=== PATIENT | female | born 1985 | race Caucasian/White ===

== ENCOUNTER 2019-08-21 12:07 | Emergency (ER) | payer OTHER, SELFPAY ==
[2019-08-21 12:14] VITALS: BP 115/68; PULSE 91; RESP 18; TEMP 36.7; O2SAT 100
--- NOTE | 2019-08-21 12:21 | ED.FEMALEGU ---
HPI - Female Genitourinary General Chief complaint: Urogenital-Female Stated complaint: buring/frequent urination Time Seen by Provider: 08/21/19 12:21 Source: patient and RN notes reviewed History of Present Illness HPI Narrative: Patient is a 34-year-old female who presents the urgent care with complaints of possible UTI. Patient states that her symptoms started 3 days ago with urgency, frequency, burning and suprapubic pressure. Patient denies any blood in the urine, fever, nausea, vomiting, abdominal pain. Patient states she used to have frequent urinary tract infections but it is been a few years since her last infection. Patient denies any use of [id number] medication for symptom relief. No other acute complaints. No acute distress noted. Patient read the plan of care. Related Data Home Medications Medication Instructions Recorded Confirmed albuterol sulfate 2 puff INHALATION QID PRN 08/21/19 08/21/19 ertugliflozin [Steglatro] 5 mg PO BID 08/21/19 08/21/19 gabapentin 300 mg PO BID 08/21/19 08/21/19 glimepiride 4 mg PO BID 08/21/19 08/21/19 lisinopril 10 mg PO DAILY 08/21/19 08/21/19 trazodone 100 mg PO HS 08/21/19 08/21/19 Allergies Allergy/AdvReac Type Severity Reaction Status Date / Time No Known Allergies Allergy Verified 08/21/19 12:29 Review of Systems Review of Systems: Narrative: CONSTITUTIONAL: Denies fever, chills, or sweats. EYES: Denies visual changes, redness, or discharge. ENT: Denies rhinorrhea, congestion, sore throat, or otalgia. CARDIOVASCULAR: Denies chest pain, palpitations, or edema. RESPIRATORY: Denies cough or dyspnea. GASTROINTESTINAL: Denies abdominal pain, nausea, vomiting, or diarrhea. GENITOURINARY: Reports of dysuria, urgency, frequency SKIN: Denies rash or itching. MUSCULOSKELETAL: Denies back pain, joint pain, or myalgia. NEUROLOGIC: Denies headache, numbness, or weakness. All other systems reviewed are negative, except as documented in HPI. PMFSH Comments At the time of my signature, I reviewed and agree with the nursing past medical, surgical, social, and family history. There is no relevant family history pertinent to the patient complaint. Exam Narrative: Exam Narrative: GENERAL: This is a well-nourished, well-developed patient, in no apparent distress. HEAD: normocephalic, atraumatic. EYES: PERRL. Sclera clear/white. Vision is grossly intact. EARS: External ears normal NOSE: External nose normal with no obvious nasal discharge, nares without redness, no rhinorrhea. THROAT: Mucous membranes moist NECK: Neck supple GASTROINTESTINAL: Abdomen soft, mild suprapubic tenderness, nondistended. SKIN: warm, intact with no suspicious lesions or rash, good texture and turgor. NEURO: awake, alert, and oriented to person, place and time. There were no obvious focal neurologic abnormalities. EXTREMITIES: No clubbing, cyanosis, or edema. BACK: Negative bilateral CVA tenderness Course Vital Signs Vital signs: Vital Signs Temperature 98.1 F 08/21/19 12:14 Pulse Rate 91 08/21/19 12:14 Respiratory Rate 18 08/21/19 12:14 Blood Pressure 115/68 08/21/19 12:14 Pulse Oximetry 100 08/21/19 12:14 Temperature 98.1 F 08/21/19 12:14 Pulse Rate 91 08/21/19 12:14 Respiratory Rate 18 08/21/19 12:14 Blood Pressure 115/68 08/21/19 12:14 Pulse Oximetry 100 08/21/19 12:14 Reviewed MDM - Female Genitourinary MDM Narrative Medical decision making narrative: Reviewed lab results with the patient. She is aware that urine analysis is indicative of a urinary tract infection. Advised the patient to complete oral antibiotic regimen as prescribed. We will culture the urine and call if medication needs to be changed or stopped, based on culture results. You may call the facility in regards to your culture, after 72 hours. Make sure to eat and drink with medication. Increase water intake and avoid sugary and caffeinated drinks. Use Pyridium as needed for bladder
== END 2019-08-21 12:40 | disposition home or self-care (01) ==
PROVIDERS: Emergency Provider Nurse Practitioner Family; PCP Internal Medicine
DX: N39.0 Urinary tract infection, site not specified (principal); E78.00 Pure hypercholesterolemia, unspecified; I10 Essential (primary) hypertension; E11.9 Type 2 diabetes mellitus without complications
CPT/HCPCS: 81003; 87077; 87086; 87088; 87186; 99213; G0463

== ENCOUNTER 2021-01-03 17:13 | Emergency (ER) | payer OTHER, SELFPAY ==
[2021-01-03 17:19] VITALS: BP 134/80; PULSE 87; RESP 14; TEMP 36.6; O2SAT 99
--- NOTE | 2021-01-03 17:32 | ED.FEMALEGU ---
HPI - Female Genitourinary General Chief complaint: Urogenital-Female Stated complaint: UTI Time Seen by Provider: 01/03/21 17:34 Source: patient and RN notes reviewed Mode of arrival: ambulatory Limitations: no limitations History of Present Illness HPI Narrative: 35 female presents concern for urine frequency, dysuria, low back pain for 2 days. Reports history of urinary tract infection. She denies fever, body aches, chills, sweats, nausea. Denies intervention. MD elicited complaint: UTI Related Data Home Medications Medication Instructions Recorded Confirmed albuterol sulfate 2 puff INHALATION QID PRN 08/21/19 08/21/19 ertugliflozin [Steglatro] 5 mg PO BID 08/21/19 01/03/21 gabapentin 300 mg PO BID 08/21/19 01/03/21 glimepiride 4 mg PO BID 08/21/19 01/03/21 lisinopril 10 mg PO DAILY 08/21/19 01/03/21 metformin 1,000 mg PO BID 08/21/19 01/03/21 trazodone 100 mg PO HS 08/21/19 01/03/21 Allergies Allergy/AdvReac Type Severity Reaction Status Date / Time No Known Allergies Allergy Verified 08/21/19 12:29 Review of Systems Review of Systems: CONSTITUTIONAL: Denies malaise, chills, sweats, or fever. GASTROINTESTINAL: Reports chronic abdominal pain. Denies nausea, vomiting, diarrhea, bloody, or mucous stools. GENITOURINARY: Reports dysuria, frequency. Denies urgency or hematuria. SKIN: Denies rash or itching. MUSCULOSKELETAL: Reports low back pain. Denies joint pain, or myalgia. All systems reviewed & are unremarkable except as noted in HPI and below PMFSH Comments At time of signature, agree with nursing past medical, surgical, social and family history. There is no relevant family history pertinent to the presenting complaint Exam Narrative: GENERAL: Well-appearing, well-nourished, and in no acute distress. HEAD: Normocephalic. EYES: PERRLA, conjunctivae clear. NECK: Supple. No lymphadenopathy CHEST: Clear to auscultation. No respiratory distress. HEART: Regular rate and rhythm. ABDOMEN: Soft, obese, no palpable or pulsatile masses, no guarding. No CVA tenderness SKIN: Warm, dry, no rash. NEURO: Alert and oriented x3. PSYCH: Normal mood and affect Course Course Emergency Course: Patient is aware of diagnosis, understands and agrees to treatment plan. Anticipatory guidance given. Patient agrees to follow-up as directed and is aware of reasons to seek care at the emergency department. Portions of this record may have been created with voice recognition software Vital Signs Vital signs: Vital Signs Temperature 98 F 01/03/21 17:19 Pulse Rate 87 01/03/21 17:19 Respiratory Rate 14 01/03/21 17:19 Blood Pressure 134/80 01/03/21 17:19 Pulse Oximetry 99 01/03/21 17:19 Temperature 98 F 01/03/21 17:19 Pulse Rate 87 01/03/21 17:19 Respiratory Rate 14 01/03/21 17:19 Blood Pressure 134/80 01/03/21 17:19 Pulse Oximetry 99 01/03/21 17:19 Reviewed. MDM - Female Genitourinary MDM Narrative Medical decision making narrative: Exam findings and UA show no acute concerns or changes; patient is non-toxic appearing and is in no distress. Patient is appropriate for outpatient treatment and follow-up. Differential Diagnosis Differential diagnosis: Likely urinary tract infection, vaginitis and cystitis Lab Data Labs: Urine Glucose 2+ Reference Range: Negative Urine Bilirubin Negative Reference Range: Negative Urine Ketone Negative Reference Range: Negative Urine Specific [place] 1.025 Reference Range:1.001-1.035 Urine Blood Negative Reference Range: Negative * * Urine pH 7.0
== END 2021-01-03 17:44 | disposition home or self-care (01) ==
PROVIDERS: Emergency Provider Nurse Practitioner
DX: R35.0 Frequency of micturition (principal); R30.0 Dysuria; M54.50 Low back pain, unspecified; E78.00 Pure hypercholesterolemia, unspecified; I10 Essential (primary) hypertension; E11.9 Type 2 diabetes mellitus without complications
CPT/HCPCS: 81003; 87086; 87088; 99213; G0463

== ENCOUNTER 2022-04-01 18:18 | Emergency (ER) | payer OTHER, SELFPAY ==
--- NOTE | ~2022-04-01 | XR_ITS ---
EXAM: XR foot RT min 3V DATE: 04/01/2022 18:43 HISTORY: DROPPED OBJECT ON DISTAL 5TH METATARSAL, PAIN . COMPARISON: None available. FINDINGS: Normal mineralization. No fracture or dislocation. No lytic or blastic lesion. Scattered m ild degenerative change. Achilles and plantar enthesopathy. No erosion or periosteal change. Forefoot soft tissue swelling. IMPRESSION: No acute osseous finding in the right foot. Reviewed, dictated and finalized at location K. O HOST
[2022-04-01 18:34] VITALS: BP 106/57; PULSE 113; RESP 16; TEMP 36.9; O2SAT 99
--- NOTE | 2022-04-01 18:45 | ED.LOWEXIN ---
HPI - Extremity Injury (Lower) General Chief Complaint: Extremity Injury, Lower Stated Complaint: Right Foot Injury Source: patient and RN notes reviewed History of Present Illness HPI Narrative: 36-year-old female presents urgent care with at bedside. Patient states around 9:00 a.m. today a poker dropped onto her right foot. Patient presents with slightly tender and swollen area to her right 5th metatarsal. Patient is unknown her last tetanus vaccination. Patient has no other complaints. Related Data Home Medications Medication Instructions Recorded Confirmed gabapentin 300 mg capsule 300 mg PO BID 08/21/19 04/01/22 glimepiride 4 mg tablet 4 mg PO BID 08/21/19 04/01/22 lisinopril 10 mg tablet 10 mg PO DAILY 08/21/19 04/01/22 trazodone 100 mg tablet 100 mg PO HS 08/21/19 04/01/22 dicyclomine 20 mg tablet See Rx Instructions .Route .COMPLEX 04/01/22 04/01/22 omeprazole 20 mg capsule,delayed 20 mg PO DAILY 04/01/22 04/01/22 release rosuvastatin 40 mg tablet 40 mg PO BID 04/01/22 04/01/22 Allergies Allergy/AdvReac Type Severity Reaction Status Date / Time No Known Allergies Allergy Verified 04/01/22 18:32 Review of Systems Review of Systems: CONSTITUTIONAL: Denies fever, chills, or sweats. EYES: Denies visual changes, redness, or discharge. ENT: Denies otalgia and sore throat CARDIOVASCULAR: Denies chest pain, palpitations, or edema. RESPIRATORY: Denies cough or dyspnea. GASTROINTESTINAL: Denies abdominal pain, nausea, vomiting, or diarrhea. GENITOURINARY: Denies dysuria or hematuria. SKIN: Puncture wound foot MUSCULOSKELETAL: Denies back pain, joint pain, or myalgia. NEUROLOGIC: Denies headache, numbness, or weakness. PMFSH Comments At the time of my signature, I reviewed and agree with the nursing past medical, surgical, social, and family history. There is no relevant family history pertinent to the patient complaint. Exam Narrative: GENERAL: This is a well-nourished, well-developed patient, in no apparent distress. HEAD: normocephalic, atraumatic. EYES: PERRL. Sclera clear/white. Vision is grossly intact. EARS: External ears normal, auditory canals clear and without drainage, TMs normal without perforation. Hearing grossly intact. NOSE: External nose normal with no obvious nasal discharge, nares without redness, no rhinorrhea. THROAT: Mucous membranes moist, posterior pharynx clear. NECK: Neck supple, non-tender without lymphadenopathy, masses or thyromegaly. CARDIOVASCULAR: Regular rate and rhythm without murmurs, gallops, or rubs. RESPIRATORY: Clear to auscultation. Breath sounds equal bilaterally. No wheezes, rales, or rhonchi. GASTROINTESTINAL: Abdomen soft, non-tender, nondistended. Bowel sounds are active. No hepato-splenomegaly, or palpable masses. No guarding. SKIN: warm, intact with no suspicious lesions or rash, good texture and turgor. NEURO: awake, alert, and oriented to person, place and time. There were no obvious focal neurologic abnormalities. EXTREMITIES: right foot noted to have a scabbed puncture wound to lateral foot with minimal erythema surrounding it. BACK: Nontender without deformity or crepitance. No flank tenderness. Course Course Level of Care: Express Care Visit Vital Signs Vital signs: Vital Signs Temperature 98.4 F 04/01/22 18:34 Pulse Rate 113 H 04/01/22 18:34 Respiratory Rate 16 04/01/22 18:34 Blood Pressure 106/57 L 04/01/22 18:34 Pulse Oximetry 99 04/01/22 18:34 Oxygen Delivery Room Air 04/01/22 18:34 Temperature 98.4 F 04/01/22 18:50 Pulse Rate 113 H 04/01/22 18:50 Respiratory Rate 16 04/01/22 18:50 Blood Pressure 106/57 L 04/01/22 18:50 Pulse Oximetry 99 04/01/22 18:50 Oxygen Delivery Room Air 04/01/22 18:50 Reviewed MDM - Extremity Injury (Lower) MDM Narrative Medical decision making narrative: Monitor for any signs of infection. If you have any new or worsening symptoms, be seen by a medical provider. Apply the
[2022-04-01 18:50] VITALS: BP 106/57; PULSE 113; RESP 16; TEMP 36.9; O2SAT 99
[2022-04-01] MEDS: TETANUS,DIPHTHERIA,AC PERTUSSIS ADULT (0.5 ML) BOOSTRIX IM (19:04)
== END 2022-04-01 19:25 | disposition home or self-care (01) ==
PROVIDERS: Emergency Provider Nurse Practitioner Family; PCP Internal Medicine
DX: S91.331A Puncture wound without foreign body, right foot, initial encounter (principal); W27.4XXA Contact with kitchen utensil, initial encounter; Y93.89 Activity, other specified; Z23 Encounter for immunization; E78.00 Pure hypercholesterolemia, unspecified; I10 Essential (primary) hypertension; E11.9 Type 2 diabetes mellitus without complications
CPT/HCPCS: 73630; 90471; 90715; 99213; G0463

== ENCOUNTER 2023-04-19 18:55 | Observation (INO) | payer OTHER, SELFPAY ==
--- NOTE | ~2023-04-19 | CT_ITS ---
EXAMINATION: CT abdomen pelvis w con DATE: 04/19/2023 20:52 INDICATION: abdominal pain TECHNIQUE: Computed tomography (CT) of the abdomen and pelvis was performed with 100 mL Omnipaque-350 intravenous contrast. Automated exposure control and iterative reconstruction technique were employe d. The dose-length product was 1438.56 mGy-cm. COMPARISON: None. FINDINGS: Lower thorax: Unremarkable Liver: Normal. Biliary/Gallbladder: Gallbladder is absent. No bile duct dilation. Pancreas: No mass or duct dilation. Spleen: Normal. Adrenals:No mass. Kidneys: No suspicious mass, obstructing stone, or hydronephrosis. GI tract: Mild distal esophageal and gastric wall edema. No small or large bowel dilation. Normal amanda endix. Mesentery/Peritoneum: No ascites, mass, or free air. Retroperitoneum: No mass. Pelvis: Normal urinary bladder and uterus. Simple left ovarian cyst which requires no additional eval uation. Right ovary not visualized. Soft Tissues: Soft tissues and body wall unremarkable. Bones: No acute osseous finding. IMPRESSION: Esophagitis/gastritis. Otherwise, no acute abdominopelvic process detected. Reviewed, dictated and finalized at location K.
--- NOTE | ~2023-04-19 | US_ITS ---
EXAMINATION: US abdomen limited DATE: 04/20/2023 11:09 INDICATION: Pancreatitis TECHNIQUE: Multiple grayscale and Doppler ultrasound images of the abdomen were obtained. COMPARISON: None FINDINGS: The visualized portion of the pancreatic body appears normal. The head and tail of the pancreas are o bscured. Liver has normal contour, with a smooth surface. There is increased parenchymal echogenicity and coarsened echotexture consistent with diffuse hepatic steatosis. No liver lesion identified. No intrahepatic biliary duct dilation suspected. Portal venous flow was seen in the hepatopetal, normal direction and has normal Doppler waveform. Gallbladder is not visualized and reportedly surgically a bsent. The common bile duct measures 3 mm diameter which is normal. Visualized portion of the right k idney demonstrates normal echogenicity with no hydronephrosis. Visualized proximal inferior vena cava is normal. IMPRESSION: 1. Diffuse hepatic steatosis. Reviewed, dictated and finalized at location L.
[2023-04-19 19:04] VITALS: BP 158/96; PULSE 102; RESP 20; TEMP 36.6; O2SAT 100
[2023-04-19 19:57] LABS: Basophils Percent Auto 0.2 % (0.2-1.2); Eosinophils Percent Auto 0.1 % (0-4.4); Hematocrit 40.8 % (37.0-47.0); Hemoglobin 13.7 g/dL (12.0-15.0); Immature Granulocyte Absolute 0.04 K/mm3 (0.00-0.031); Immature Granulocyte Percent A 0.4 % (0-0.5); Lymphocytes Absolute Auto 1.11 K/mm3 (0.9-3.2); Lymphocytes Percent Auto 10.6 % (18.3-44.2); Mean Corpuscular HGB Conc 33.6 g/dl (32-36); Mean Corpuscular Hemoglobin 29.3 pg (26-34); Mean Corpuscular Volume 87.2 fl (80-100); Mean Platelet Volume 10.1 fl (7.4-10.4); Monocytes Absolute Auto 0.4 K/mm3 (0.1-0.6); Monocytes Percent Auto 3.5 % (2.6-8.5); Neutrophils Absolute Auto 8.9 K/mm3 (1.3-6.7); Neutrophils Percent Auto 85.2 % (45.5-73.1); Platelet Count Result 281 k/mm3 (150-375); Red Blood Count 4.68 M/mm3 (4.2-5.4); Red Cell Distribution Width 13.7 % (11.5-14.5); White Blood Count 10.5 K/mm3 (4.5-10.0)
[2023-04-19 19:58] LABS: Appearance Urine Clear (Clear); Bilirubin Urine Negative (Negative); Blood Urine Negative (Negative); Color Urine Yellow (Yellow); Glucose Urine UA 1+ mg/dL (Negative); Ketones Urine Trace mg/dL (Negative); Leukocyte Esterase Ur Negative LEU/UL (Negative); Nitrate Urine Negative (Negative); Protein Urine Negative (Negative); Specific Grav Ur 1.019 (1.001-1.035); Urobilinogen Urine 0.2 mg/dL (<2.0); pH Urine 5.5 (5.0-9.0)
[2023-04-19 20:06] LABS: Alanine Aminotransferase 39 U/L (6-35); Albumin Level 4.3 g/dL (3.5-5.1); Alkaline Phosphatase 97 U/L (38-126); Anion Gap 10 mmol/L (8-16); Aspartate Amino Transferase 28 U/L (14-36); Bilirubin,Total 0.4 mg/dL (0.2-1.3); Blood Urea Nitrogen 6 mg/dL (7-17); Calcium 9.2 mg/dL (8.4-10.2); Carbon Dioxide 23 mmol/L (22-30); Chloride 101 mmol/L (98-107); Estimated CRCL calculation 165 ml/min; Estimated Glomerular Filt Rate > 60; Glucose 264 mg/dL (65-110); Lipase 1358 U/L (23-300); Potassium 3.7 mmol/L (3.4-5.0); Sodium 134 mmol/L (137-145)
[2023-04-19] MEDS: HYDROmorphone HCL INJ (*CRX) 1 MG/ML SYR IV PUSH ×2 (20:28→23:35)
[2023-04-19] MEDS: SODIUM CHLORIDE 0.9% IV 1,000 ML 999 ML IV CONT (20:28)
[2023-04-19] MEDS: ONDANSETRON INJ 4 MG/2 ML VIAL IV PUSH (20:28)
[2023-04-19 20:34] LABS: Add Urine Microscopic? NO
[2023-04-19 20:44] LABS: Magnesium 1.5 mg/dL (1.6-2.3)
--- NOTE | 2023-04-19 20:54 | ED.ABDPAIN ---
HPI - Abdominal Pain General Chief Complaint: Abdominal Pain Stated Complaint: abd pain (4th ER visit in 2 weeks - not here) Time Seen by Provider: 04/19/23 20:17 History of Present Illness HPI narrative: patient is a 37-year-old female presents emergency department with chief complaint of abdominal pain. Patient reports the pain is in the epigastric and left upper quadrant region patient states then seen 3 other times at [facility] reports that she was admitted once for DKA and told that she had problems with an ovarian cyst the patient states the pain is not improved by anything reports she has had some nausea reports that the pain radiates to her back the patient reports that her symptoms sound like pancreatitis reports he has never had pancreatitis before she does report prior history of a cholecystectomy. Related Data Home Medications Medication Instructions Recorded Confirmed gabapentin 300 mg capsule 300 mg PO BID 08/21/19 04/01/22 glimepiride 4 mg tablet 4 mg PO BID 08/21/19 04/01/22 lisinopril 10 mg tablet 10 mg PO DAILY 08/21/19 04/01/22 trazodone 100 mg tablet 100 mg PO HS 08/21/19 04/01/22 dicyclomine 20 mg tablet See Rx Instructions .Route .COMPLEX 04/01/22 04/01/22 omeprazole 20 mg capsule,delayed 20 mg PO DAILY 04/01/22 04/01/22 release rosuvastatin 40 mg tablet 40 mg PO BID 04/01/22 04/01/22 Allergies Allergy/AdvReac Type Severity Reaction Status Date / Time No Known Allergies Allergy Verified 04/19/23 19:08 Review of Systems Review of Systems: A 10 system review of systems was completed on the patient and is negative except for what is stated in the HPI. Nursing and ancillary documentation was reviewed. Exam Narrative: GENERAL: Well-appearing, well-nourished, and in Moderate acute pain distress. pacing the room HEAD: Normocephalic, atraumatic. EYES: PERRLA and EOMI. ENT: Nares clear, no rhinorrhea or epistaxis. Mucous membranes moist. NECK: Supple. CHEST: Clear to auscultation. No respiratory distress. HEART: Regular rate and rhythm. No murmur heard. Normal peripheral pulses. ABDOMEN: Soft, tenderness to palpation in the epigastric quadrant, nondistended, normal active bowel sounds. EXTREMITIES: Normal range of motion. No edema. SKIN: Warm, dry, no rash. NEURO: No focal deficits. Alert and oriented x3. PSYCH: Normal mood and affect. Course Vital Signs Vital signs: Vital Signs Temperature 36.6 C 04/19/23 19:04 Pulse Rate 102 H 04/19/23 19:04 Respiratory Rate 20 04/19/23 19:04 Blood Pressure 158/96 H 04/19/23 19:04 Pulse Oximetry 100 04/19/23 19:04 Oxygen Delivery Room Air 04/19/23 19:04 Temperature 36.6 C 04/19/23 19:04 Pulse Rate 102 H 04/19/23 19:04 Respiratory Rate 20 04/19/23 19:04 Blood Pressure 158/96 H 04/19/23 19:04 Pulse Oximetry 100 04/19/23 19:04 Oxygen Delivery Room Air 04/19/23 19:04 MDM - Abdominal Pain MDM Narrative Medical decision making narrative: differential diagnosis includes pancreatitis, gastroenteritis, DKA, electrolyte abnormality, ileus, small-bowel obstruction intra-abdominal infection, diverticulitis, colitis laboratory studies were obtained on the patient showed a CBC with white count 10.5 electrolytes showed a glucose of 264 but the patient has anion gap of 10 and a CO2 of 23 lipase was elevated at 13 58 liver enzymes showed a normal bilirubin at 0.4 AST was 28 ALT is 39 the patient's pain was controlled in the emergency department the magnesium was found to be 1.5 the patient was given 3 g of IV magnesium in the emergency department. CT scan of the abdomen pelvis showed evidence of gastritis no evidence of pseudocyst the patient's pain will be controlled the patient was at case was discussed with the hospitalist and the patient will receive further care in the inpatient setting. Lab Data 04/19/23 19:48 04/19/23 19:48 Labs: Lab Results 04/19/23 0
[2023-04-19] MEDS: MAGNESIUM SULFATE 3GM/D5W100ML 3 GM/100 ML BAG IVPB (20:57)
[2023-04-19] MEDS: PANTOPRAZOLE SODIUM IV 40 MG VIAL IV PUSH (21:10)
[2023-04-19 21:32] LABS: Lactic Acid Reflex 1.4 mmol/L (0.7-2.0)
[2023-04-19] MEDS: SODIUM CHLORIDE 0.9% IV 1,000 ML 125 ML IV CONT (21:51)
[2023-04-19 21:59] VITALS: BP 170/84; PULSE 85; RESP 15; O2SAT 98
[2023-04-19 22:25] VITALS: BP 161/88; PULSE 77; RESP 20; TEMP 36.4; O2SAT 100; BMI 38.3
--- NOTE | 2023-04-19 22:25 | ADMGEN ---
This patient, Candice Medrano, was admitted to Medical Room 248-. Patient/family oriented to hospital policies and general routines including ID bracelet, bed and alarms, visiting hours, pain management, procedures, bathroom and other care routines, personal items, smoking policy, room service/diet, and visiting hours. Information on how to activate the Rapid Response Team has been discussed. Patient/Family are encouraged to report perceived risks to care and to ask questions if they do not understand what they are told or what they should do.
--- NOTE | 2023-04-19 22:40 | PM.IMHP ---
H&P: HPI History of Present Illness Date/Time: 04/19/23 22:40 Chief Complaint: abdominal pain Narrative: this is a 37-year-old female with past medical history significant for insulin-dependent diabetes mellitus, hypertension, dyslipidemia, obesity. Patient presents to the emergency room with epigastric pain for a week or so. Has been to outside facility for this problem and it was thought to be secondary to ovarian seized. Patient also treated for DKA at that time. Patient rates the pain at 8/10 in intensity radiates to the back. Denies any fevers, rigors, chills has had several bouts of diarrhea. Patient has been admitted for further evaluation management and treatment. EXAMINATION: CT abdomen pelvis w con DATE: 04/19/2023 20:52 INDICATION: abdominal pain TECHNIQUE: Computed tomography (CT) of the abdomen and pelvis was performed with 100 mL Omnipaque-350 intravenous contrast. Automated exposure control and iterative reconstruction technique were employed. The dose-length product was 1438.56 mGy-cm. COMPARISON: None. FINDINGS: Lower thorax: Unremarkable Liver: Normal.? Biliary/Gallbladder: Gallbladder is absent. No bile duct dilation. Pancreas: No mass or duct dilation. Spleen: Normal. Adrenals:No mass. Kidneys: No suspicious mass, obstructing stone, or hydronephrosis. GI tract: Mild distal esophageal and gastric wall edema. No small or large bowel dilation. Normal appendix. Mesentery/Peritoneum: No ascites, mass, or free air. Retroperitoneum: No mass. Pelvis: Normal urinary bladder and uterus. Simple left ovarian cyst which requires no additional evaluation. Right ovary not visualized. Soft Tissues: Soft tissues and body wall unremarkable. Bones:? No acute osseous finding. IMPRESSION: Esophagitis/gastritis. Otherwise, no acute abdominopelvic process detected. [facility] Family History Family History (Updated 04/19/23 @ 22:41 by Maria Luz Latham RN) Mother Diabetes mellitus Social History Social History Smoking status: Current every day smoker Tobacco type: e-cigarettes/vaping Alcohol intake: never Substance use type: marijuana Other substance usage details: daily Do You Feel Safe in your Home?: Yes Lack of Transportation: No Lack of Food: Never True Current Housing: I Have Housing Concerned About Future Housing: No Difficulty Paying Gas/Electric Bills: No Difficulty Paying for Meds: YES Currently Unemployed: YES Education: High School Diploma/GED Difficulty w/ Childcare or Family Care: No Spiritual care concerns: No Meds Home Medications and Allergies Home Medications Medication Instructions Recorded Confirmed Type gabapentin 300 mg capsule 300 mg PO BID 08/21/19 04/19/23 History lisinopril 10 mg tablet 10 mg PO DAILY 08/21/19 04/19/23 History trazodone 100 mg tablet 100 mg PO HS 08/21/19 04/19/23 History dicyclomine 20 mg tablet 20 mg PO QID PRN abd pain 04/01/22 04/19/23 History omeprazole 20 mg capsule,delayed 20 mg PO DAILY 04/01/22 04/19/23 History release rosuvastatin 40 mg tablet 40 mg PO HS 04/01/22 04/19/23 History insulin glargine 100 unit/mL (3 25 unit subcut Q12H 04/19/23 04/19/23 History mL) subcutaneous pen (Lantus Solostar U-100 Insulin) insulin lispro 100 unit/mL 10 unit subcut TID 04/19/23 04/19/23 History subcutaneous pen ondansetron 4 mg disintegrating 4 - 8 mg PO Q8H PRN Nausea And 04/19/23 04/19/23 History tablet Vomiting Allergies Allergy/AdvReac Type Severity Reaction Status Date / Time No Known Allergies Allergy Verified 04/19/23 19:08 Vital Signs Vital Signs - 24 hr 04/19/23 19:04 04/19/23 21:59 04/19/23 22:25 Temperature 97.9 F 97.6 F Pulse Rate 102 H 85 77 Respiratory Rate 20 15 20 Blood Pressure 158/96 H 170/84 H 161/88 H Pulse Oximetry 100 98 100 Oxygen Delivery Room Air Exam Narrative: patient is laying in bed
[2023-04-20 05:18] VITALS: BP 142/88; PULSE 82; RESP 18; TEMP 36.8; O2SAT 100
[2023-04-20] MEDS: SODIUM CHLORIDE 0.9% IV 1,000 ML 125 ML IV CONT (05:52)
[2023-04-20] MEDS: HYDROmorphone HCL INJ (*CRX) 1 MG/ML SYR IV PUSH ×2 (05:52→15:42)
--- NOTE | 2023-04-20 07:24 | PM.IMPN ---
Progress Note: A&P Assessment and Plan (1) Acute pancreatitis: Code(s): K85.90 - Acute pancreatitis without necrosis or infection, unspecified Status: Acute Assessment and Plan: Patient reported to the ED with complaint of abdominal pain in the epigastric and left upper quadrant region radiating to her back. CT abdomen/pelvis revealed esophagitis/gastritis. Lipase peaked at 1358. Patient trialed on diabetic diet and developed increased abdominal pain. Will place patient back on full liquid. Full liquid diet Continue antiemetics Continue analgesics (2) Insulin dependent diabetes mellitus: Status: Acute Assessment and Plan: Patient is a type II diabetic who was started on insulin 10 days ago. Per patient she is managing the medication well. She does not have an wildlife and game protector at this point, but states her PCP is referring her to one. Continue home medication. Insulin glargine Insulin lispro Monitor POC glucose (3) Hypertension: Code(s): I10 - Essential (primary) hypertension Status: Acute Assessment and Plan: Vital signs have been stable. Hypertension well controlled on patient home medications. Lisinopril 10 mg PO Time Spent With Patient Time with patient: 25 - 35 minutes Subjective Date/time seen: 04/20/23 07:24 Interval history: Patient is a 37 year old female with past medical history of insulin dependent diabetes, hypertension, and hyperlipidemia. Patient had a cholecystectomy 2012. Pleasant 37 year old female sitting up in bed. She was admitted for pancreatitis. Per patient she has been in and out [facility] for similar symptoms. Patient is newly insulin dependent and was started on Lantus and Novolog 10 days ago. Per patient she is managing the medication well. She does not have an wildlife and game protector at this point, but states her PCP is referring her to one. She was unable to tolerate a diabetic diet. After eating a sandwich patient developed increased epigastric and left upper quadrant abdominal pain rating it a 6-7. She continues to deny nausea and vomiting at this time. Review of Systems Review of Systems: All systems reviewed & are unremarkable except as noted in HPI and below Exam Narrative: AF HR83 RR18 SpO2 100 BP 131/77 General: well nourished, well-developed female in no acute respiratory distress who is nontoxic appearing, lying semi recumbent in bed. HEENT: Normocephalic. Atraumatic. Pupils equal round reactive to light. Extraocular movement intact. Sclera clear and anicteric. Nares patent. No oral lesions. Moist mucous membranes. Tongue is midline. Palate mony symmetrically. No facial asymmetry. Neck: Neck was supple. No dominant adenopathy, thyromegaly or masses. 2+ carotid upstrokes without bruits. Chest: Lungs are clear to auscultation bilaterlly. No wheezes or crackles. CV: Heart was regular rate and rhythm. S1-S2. No murmurs, gallops, or rubs. Abd: Abdomen was soft. Nontender. Nondistended. Postive bowel sounds. No organomegaly or masses. Ext: No clubbing, cyanosis, or edema. 2+ DP pulses bilaterally. Neuro: Patient is alert and oriented x4. Strenth is 5/5 in both upper and lower extremities. Cranial nerves 2-12 are intact. Speech is clear. Psych: Normal nood and affect. Patient is pleasant and cooperative. Skin: Warm and dry. No rashes noted. Objective Data Vital Signs Vital Signs: Vital Signs - 24 hr 04/19/23 19:04 04/19/23 21:59 04/19/23 22:25 Temperature 97.9 F 97.6 F Pulse Rate 102 H 85 77 Respiratory Rate 20 15 20 Blood Pressure 158/96 H 170/84 H 161/88 H Pulse Oximetry 100 98 100 Oxygen Delivery Room Air 04/19/23 23:56 04/20/23 05:18 Temperature 98.3 F Pulse Rate 82 Respiratory Rate 18 Blood Pressure 142/88 H Pulse Oximetry 100 Oxygen Delivery Room Air Intake/Output Intake/Output: Intake & Output 04/17/23 04/18/23 04/19/23 04/20/23 22:59 23:59 23:59 23:59 Intake Total 1000 1000 [place]
[2023-04-20 08:07] LABS: Hematocrit 37.2 % (37.0-47.0); Mean Corpuscular HGB Conc 32.3 g/dl (32-36); Mean Corpuscular Hemoglobin 28.8 pg (26-34); Mean Corpuscular Volume 89.2 fl (80-100); Platelet Count Result 265 k/mm3 (150-375); Red Blood Count 4.17 M/mm3 (4.2-5.4); Red Cell Distribution Width 13.7 % (11.5-14.5); White Blood Count 9.8 K/mm3 (4.5-10.0)
[2023-04-20 08:20] LABS: Alanine Aminotransferase 29 U/L (6-35); Albumin Level 3.5 g/dL (3.5-5.1); Alkaline Phosphatase 74 U/L (38-126); Anion Gap 3 mmol/L (8-16); Aspartate Amino Transferase 21 U/L (14-36); Bilirubin,Total 0.3 mg/dL (0.2-1.3); Blood Urea Nitrogen 4 mg/dL (7-17); Calcium 7.9 mg/dL (8.4-10.2); Carbon Dioxide 26 mmol/L (22-30); Chloride 107 mmol/L (98-107); Estimated CRCL calculation 165 ml/min; Estimated Glomerular Filt Rate > 60; Glucose 168 mg/dL (65-110); Potassium 3.6 mmol/L (3.4-5.0); Sodium 136 mmol/L (137-145)
[2023-04-20 08:23] LABS: Beta-Hydroxybutyrate/Acetoacetate 0.13 mmol/L (0.02-0.27)
[2023-04-20 08:24] LABS: Lipase 106 U/L (23-300); Magnesium 2.2 mg/dL (1.6-2.3)
[2023-04-20 09:55] VITALS: BP 106/79; PULSE 85
[2023-04-20] MEDS: GABAPENTIN 300 MG CAPSULE PO ×2 (09:56→20:20)
[2023-04-20] MEDS: ENOXAPARIN 40 MG/0.4 ML SYRINGE SUB-Q (09:56)
[2023-04-20] MEDS: PANTOPRAZOLE 40 MG TABLET PO (09:56)
[2023-04-20] MEDS: lisinopriL 10 MG TABLET PO (09:56)
[2023-04-20 11:14] VITALS: BMI 38.3
[2023-04-20 12:18] LABS: Glucose Point of Care 177 mg/dl (65-105)
[2023-04-20] MEDS: INSULIN ASPART (*BKC) 100 UNITS/ML 10 UNITS SUB-Q ×2 (13:29→18:25)
[2023-04-20 14:18] VITALS: BP 131/77; PULSE 83; RESP 18; TEMP 36.4; O2SAT 100
[2023-04-20 16:07] VITALS: O2SAT 100
[2023-04-20] MEDS: ONDANSETRON INJ 4 MG/2 ML VIAL IV PUSH (17:00)
[2023-04-20 17:18] LABS: Glucose Point of Care 152 mg/dl (65-105)
[2023-04-20 20:00] VITALS: PULSE 78; RESP 18; O2SAT 100
[2023-04-20 20:13] LABS: Glucose Point of Care 181 mg/dl (65-105)
[2023-04-20] MEDS: ACETAMINOPHEN 325 MG TABLET 650 MG PO (20:17)
[2023-04-20] MEDS: INSULIN GLARGINE (*BKC) 100 UNITS/ML 25 UNITS SUB-Q (20:18)
[2023-04-20] MEDS: traZODone HCL 50 MG TABLET 100 MG PO (20:20)
[2023-04-20] MEDS: DICYCLOMINE HCL 10 MG CAPSULE 20 MG PO (20:20)
[2023-04-20 22:09] VITALS: BP 115/66; PULSE 61; RESP 14; TEMP 36.4; O2SAT 99
[2023-04-21 05:43] LABS: Hematocrit 36.2 % (37.0-47.0); Hemoglobin 11.9 g/dL (12.0-15.0); Mean Corpuscular HGB Conc 32.9 g/dl (32-36); Mean Corpuscular Hemoglobin 29.2 pg (26-34); Mean Corpuscular Volume 88.9 fl (80-100); Mean Platelet Volume 10.4 fl (7.4-10.4); Platelet Count Result 246 k/mm3 (150-375); Red Blood Count 4.07 M/mm3 (4.2-5.4); White Blood Count 6.8 K/mm3 (4.5-10.0)
[2023-04-21 05:46] LABS: Hemoglobin A1C 9.6 % (<5.7)
[2023-04-21 05:55] LABS: Anion Gap 3 mmol/L (8-16); Blood Urea Nitrogen 4 mg/dL (7-17); Calcium 8.4 mg/dL (8.4-10.2); Carbon Dioxide 25 mmol/L (22-30); Chloride 108 mmol/L (98-107); Estimated CRCL calculation 210 ml/min; Estimated Glomerular Filt Rate > 60; Glucose 110 mg/dL (65-110); Lipase 61 U/L (23-300); Potassium 3.6 mmol/L (3.4-5.0); Sodium 136 mmol/L (137-145)
[2023-04-21 07:36] VITALS: BP 119/83; PULSE 82; RESP 16; TEMP 36.5; O2SAT 100
[2023-04-21 08:37] LABS: Glucose Point of Care 153 mg/dl (65-105)
[2023-04-21] MEDS: GABAPENTIN 300 MG CAPSULE PO (09:53)
[2023-04-21] MEDS: lisinopriL 10 MG TABLET PO (09:53)
[2023-04-21] MEDS: PANTOPRAZOLE 40 MG TABLET PO (09:53)
[2023-04-21] MEDS: ENOXAPARIN 40 MG/0.4 ML SYRINGE SUB-Q (09:53)
[2023-04-21] MEDS: INSULIN ASPART (*BKC) 100 UNITS/ML 10 UNITS SUB-Q ×2 (09:54→12:17)
[2023-04-21] MEDS: INSULIN GLARGINE (*BKC) 100 UNITS/ML 25 UNITS SUB-Q (09:55)
[2023-04-21 12:09] LABS: Glucose Point of Care 195 mg/dl (65-105)
[2023-04-21 13:45] VITALS: TEMP 36.4
[2023-04-21 14:06] VITALS: BP 106/57; PULSE 85; RESP 18; TEMP 36.4; O2SAT 98
--- NOTE | 2023-04-21 14:23 | PM.DS ---
DS: Admitting Diagnosis Discharge Date 04/21/23 Admitting Diagnosis acute pancreatitis DS: Discharge Diagnosis Discharge Diagnosis (1) Acute pancreatitis: Code(s): K85.90 - Acute pancreatitis without necrosis or infection, unspecified Status: Acute (2) Insulin dependent diabetes mellitus: Status: Acute (3) Hypertension: Code(s): I10 - Essential (primary) hypertension Status: Acute DS: Summary Hospital Course Hospital Course: this is a 37-year-old female with past medical history of insulin-dependent diabetes, hypertension, hyperlipidemia and obesity the presented to the ED due to epigastric pain. Patient was recently at outside facility and was treated for DKA and was found to have in enlarged ovary that was thought to be the cause of her pain. Patient had pain that radiated to her back with associated diarrhea. She was found have an elevated lipase of 1358 patient was given analgesics and antiemetics as needed. Patient eventually started on a liquid diet and did well with this. Her diet was advanced and patient did well with a low-fat diet on 04/21/2023. Her lipase has returned to baseline. Her labs and vital signs are stable and she is medically clear for discharge at this time. Time Spent with Patient Time attestation: Total time spent providing and/or coordinating discharge services: Exam Narrative: GENERAL: Comfortable, no acute distress , obesity HENMT: moist mucous membranes EYES: EOM intact b/l NECK: no lymphadenopathy RESPIRATORY: clear to auscultation CARDIO: RRR GI: soft, nontender, bowel sounds present SKIN: no rashes EXTREMITIES: no edema, redness or tenderness DS: Data Data Completed and Pending Labs on day of discharge: Labs from last 24 hours 04/21/23 04/21/23 04/21/23 12:07 08:34 05:02 WBC 6.8 RBC 4.07 L Hgb 11.9 L Hct 36.2 L MCV 88.9 MCH 29.2 MCHC 32.9 RDW 14.0 Plt Count 246 MPV 10.4 Sodium 136 L Potassium 3.6 Chloride 108 H Carbon Dioxide 25 Anion Gap 3 L BUN 4 L Creatinine 0.30 L Estim Creat Clear Calc 210 Estimated GFR > 60 Glucose 110 POC Capillary Glucose 195 H 153 H Hemoglobin A1c 9.6 H Calcium 8.4 Lipase 61 04/20/23 04/20/23 20:08 17:15 WBC RBC Hgb Hct MCV MCH MCHC RDW Plt Count MPV Sodium Potassium Chloride Carbon Dioxide Anion Gap BUN Creatinine Estim Creat Clear Calc Estimated GFR Glucose POC Capillary Glucose 181 H 152 H Hemoglobin A1c Calcium Lipase Discharge Plan Discharge Attending physician on discharge: Barak Kenyon Discharging Clinician: Shruti Araujo Patient Disposition: Home, Self-Care Activity: as tolerated Diet: low fiber Discharge Instructions: DISCHARGE INSTRUCTIONS: Call your doctor if: -You have severe pain in your abdomen and you are vomiting. -You have a fever. -You continue to lose weight without trying. -Your skin or the whites of your eyes turn yellow. -You have questions or concerns about your condition or care. Self-care: -Rest when you feel it is needed. Slowly start to do more each day. -Do not drink any alcohol. -Diet: low fiber/bland -Do not smoke. Discharge disposition: Take medications as prescribed Monitor blood pressures Avoid social areas, you wear a mask when in social settings Encouraged to continue with yearly vaccinations Return to the emergency department if he developed sudden shortness of breath, chest pain, nausea, vomiting, upset stomach or intractable diarrhea Return to the emergency department if you develop fever greater than 100.4 Follow-up with the primary care physician within 1-2 weeks Thank you for choosing [facility] for your healthcare needs Patient Instructions: Antibiotic Form, How to Stop Smoking (DC), Basic Carbohydrate Counting (DC) Stand Alone Forms: General Discharge Informat
== END 2023-04-21 15:20 | disposition home or self-care (01) ==
LOC: ANHED 21:43 → ANH2MED 22:01
PROVIDERS: Student in an Organized Health Care Education/Training Program; Admitting Provider Internal Medicine; Emergency Provider Emergency Medicine; PCP Internal Medicine; Visit Provider Family Medicine
DX: K85.90 Acute pancreatitis without necrosis or infection, unspecified (principal); E83.42 Hypomagnesemia; I10 Essential (primary) hypertension; E11.9 Type 2 diabetes mellitus without complications; E78.5 Hyperlipidemia, unspecified; E66.9 Obesity, unspecified; Z68.38 Body mass index [BMI] 38.0-38.9, adult; F17.290 Nicotine dependence, other tobacco product, uncomplicated; F12.90 Cannabis use, unspecified, uncomplicated; Z79.4 Long term (current) use of insulin; Z79.84 Long term (current) use of oral hypoglycemic drugs; Z79.899 Other long term (current) drug therapy; Z83.3 Family history of diabetes mellitus
CPT/HCPCS: 36415; 74177; 76705; 80048; 80053; 81003; 81025; 82010; 82948; 83036; 83605; 83690; 83735; 85025; 85027; 96361; 96372; 96374; 96375; 96376; 99285; A9270; C9113; G0378; J1170; J1650; J1815; J2405; J3475; J7030; Q9967

== ENCOUNTER 2023-05-11 08:00 | Outpatient (RCR) | payer OTHER, SELFPAY ==
[2023-05-11 08:46] VITALS: BMI 40.7
[2023-05-11 08:47] VITALS: BMI 40.7
== END 2023-07-27 14:09 | disposition home or self-care (01) ==
LOC: ANHDMC 08:00
PROVIDERS: PCP Internal Medicine; Visit Provider Internal Medicine
DX: E11.42 Type 2 diabetes mellitus with diabetic polyneuropathy (principal); Z71.89 Other specified counseling; Z71.3 Dietary counseling and surveillance
CPT/HCPCS: 97802; G0108

== ENCOUNTER 2023-09-05 23:20 | Emergency (ER) | payer BC, OTHER, SELFPAY ==
--- NOTE | ~2023-09-05 | CT_ITS ---
CT of the Abdomen and Pelvis: Indication: Abdominal pain Technique: 2.5 mm axial scans were obtained through the abdomen and pelvis following intravenous adm inistration of 100 cc of Omnipaque 350. Dose reduction technique was used on this scan by utilizing a utomated exposure control and iterative reconstruction technique. The dose-length product (DLP) was 1 520.85 mGy-cm. COMPARISON: 04/19/2023 Findings: Scans through the lung bases are unremarkable. The liver, spleen, pancreas, adrenals and kidneys are within normal limits. Cholecystectomy clips are present. No evidence of aortic aneurysm. No lymphadenopathy. No bowel obstruction or bowel wall thickening. There is no evidence to suggest acute appendicitis. Th ere is laxity of the inferior, anterior abdominal wall musculature. Images through the pelvis were performed. Urinary bladder unremarkable. No pelvic mass seen. No ascit es. Impression: No acute abnormalities seen. Reviewed, dictated and finalized at [facility]. Impression: No acute abnormalities seen.
[2023-09-05 23:40] VITALS: BP 138/82; PULSE 98; RESP 15; TEMP 37; O2SAT 97
--- NOTE | 2023-09-05 23:49 | ED.ABDPAIN ---
HPI - Abdominal Pain General Chief Complaint: Abdominal Pain <Jeison Castellanos APRN - Last Filed: 09/06/23 02:03> Stated Complaint: abd pain <Jeison Castellanos APRN - Last Filed: 09/06/23 02:03> Time Seen by Provider: 09/05/23 23:35 <Jeison Castellanos APRN - Last Filed: 09/06/23 02:03> Source: patient <Jeison Castellanos APRN - Last Filed: 09/06/23 02:03> Mode of arrival: ambulatory <Jeison Castellanos APRN - Last Filed: 09/06/23 02:03> Limitations: no limitations <Jeison Castellanos APRN - Last Filed: 09/06/23 02:03> History of Present Illness HPI narrative: Candice is a 38-year-old female patient presenting to the ER today with complaints of severe upper abdominal pain that is radiating into her back. She reports symptoms started at 8:00 pm tonight. She does have nausea and vomiting as well. History of pancreatitis from her diabetes. Rates pain sharp 10/10. Denies any concern for . Last bowel movement was today. Surgical history includes cholecystectomy, oophorectomy, and . <Jeison Castellanos APRN - Last Filed: 09/06/23 02:03> Related Data Home Medications: Home Medications Medication Instructions Recorded Confirmed gabapentin 300 mg capsule 300 mg PO BID 08/21/19 04/19/23 lisinopril 10 mg tablet 10 mg PO DAILY 08/21/19 04/19/23 trazodone 100 mg tablet 100 mg PO HS 08/21/19 04/19/23 dicyclomine 20 mg tablet 20 mg PO QID PRN abd pain 04/01/22 04/19/23 omeprazole 20 mg capsule,delayed 20 mg PO DAILY 04/01/22 04/19/23 release rosuvastatin 40 mg tablet 40 mg PO HS 04/01/22 04/19/23 insulin glargine 100 unit/mL (3 25 unit subcut Q12H 04/19/23 04/19/23 mL) subcutaneous pen (Lantus Solostar U-100 Insulin) insulin lispro 100 unit/mL 10 unit subcut TID 04/19/23 04/19/23 subcutaneous pen ondansetron 4 mg disintegrating 4 - 8 mg PO Q8H PRN Nausea And 04/19/23 04/19/23 tablet Vomiting <Jeison Castellanos APRN - Last Filed: 09/06/23 02:03> Allergies/Adverse Reactions: Allergies Allergy/AdvReac Type Severity Reaction Status Date / Time No Known Allergies Allergy Verified 04/19/23 19:08 <Jeison Castellanos APRN - Last Filed: 09/06/23 02:03> Review of Systems Review of Systems: Pertinent positives per HPI. Patient denies any fever, chills, rash, headache, visual changes, dizziness, cough, runny nose, sore throat, shortness of breath, chest pain, palpitations, diarrhea, constipation, or any urinary issues. <Jeison Castellanos APRN - Last Filed: 09/06/23 02:03> [facility] Family History Family History: Family History Mother Diabetes mellitus <Jeison Castellanos APRN - Last Filed: 09/06/23 02:03> Social History Social History: Social History Smoking status: Current every day smoker Tobacco type: e-cigarettes/vaping Alcohol intake: never Substance use type: marijuana Other substance usage details: daily Do You Feel Safe in your Home?: Yes Lack of Transportation: No Lack of Food: Never True Current Housing: I Have Housing Concerned About Future Housing: No Difficulty Paying Gas/Electric Bills: No Difficulty Paying for Meds: YES Currently Unemployed: YES Education: High School Diploma/GED Difficulty w/ Childcare or Family Care: No Spiritual care concerns: No <Jeison Castellanos APRN - Last Filed: 09/06/23 02:03> Comments At the time of my signature, I reviewed and agree with the nursing past medical, surgical, social, and family history. There is no relevant family history pertinent to the patient complaint. <Jeison Castellanos APRN - Last Filed: 09/06/23 02:03> Exam Narrative: General: Well-developed, morbidly obese, in no apparent distress. Head: Normocephalic, atraumatic. Cardio: Regular rate and rhythm, s1 and s2 normal, no murmur appreciated.
[2023-09-05] MEDS: HYDROmorphone HCL INJ (*CRX) 1 MG/ML SYR 0.5 MG IV PUSH (23:55)
[2023-09-05] MEDS: SODIUM CHLORIDE 0.9% IV 1,000 ML 999 ML IV CONT (23:56)
[2023-09-05] MEDS: ONDANSETRON INJ 4 MG/2 ML VIAL IV PUSH (23:56)
[2023-09-06 00:05] LABS: Alanine Aminotransferase 23 U/L (6-35); Albumin Level 4.1 g/dL (3.5-5.1); Alkaline Phosphatase 97 U/L (38-126); Anion Gap 12 mmol/L (4-12); Aspartate Amino Transferase 23 U/L (14-36); Bilirubin,Total 0.3 mg/dL (0.2-1.3); Blood Urea Nitrogen 12 mg/dL (7-17); Calcium 9.1 mg/dL (8.4-10.2); Carbon Dioxide 21 mmol/L (22-30); Chloride 101 mmol/L (98-107); Estimated CRCL calculation 168 ml/min; Estimated Glomerular Filt Rate > 60; Glucose 245 mg/dL (65-110); Lipase 57 U/L (23-300); Potassium 3.8 mmol/L (3.4-5.0); Sodium 134 mmol/L (137-145)
[2023-09-06 00:09] LABS: Appearance Urine Clear (Clear); Bacteria Urine 4+ /hpf; Bilirubin Urine Negative (Negative); Blood Urine Negative (Negative); Color Urine Yellow (Yellow); Glucose Urine UA Negative (Negative); Ketones Urine Negative (Negative); Leukocyte Esterase Ur 1+ LEU/UL (Negative); Nitrate Urine Positive (Negative); Non Pathogenic Casts 0-2; Protein Urine Negative (Negative); RBC Urine 0-2 /hpf (0-2); Specific Grav Ur 1.015 (1.001-1.035); Squamous Epithelial Cell Urine Occasional /hpf (Few); Urobilinogen Urine 0.2 mg/dL (<2.0); WBC Urine 21-50 /hpf (0-3); pH Urine 5.5 (5.0-9.0)
[2023-09-06 00:12] LABS: Add Urine Microscopic? YES
[2023-09-06 00:13] LABS: Basophils Percent Auto 0.2 % (0.2-1.2); Eosinophils Absolute Auto 0.1 K/mm3 (0-0.3); Eosinophils Percent Auto 0.5 % (0-4.4); Hemoglobin 12.9 g/dL (12.0-15.0); Immature Granulocyte Absolute 0.08 K/mm3 (0.00-0.031); Immature Granulocyte Percent A 0.6 % (0-0.5); Lymphocytes Absolute Auto 2.22 K/mm3 (0.9-3.2); Lymphocytes Percent Auto 16.5 % (18.3-44.2); Mean Corpuscular HGB Conc 33.9 g/dl (32-36); Mean Corpuscular Hemoglobin 29.3 pg (26-34); Mean Corpuscular Volume 86.4 fl (80-100); Mean Platelet Volume 9.7 fl (7.4-10.4); Monocytes Absolute Auto 0.6 K/mm3 (0.1-0.6); Monocytes Percent Auto 4.7 % (2.6-8.5); Neutrophils Absolute Auto 10.4 K/mm3 (1.3-6.7); Neutrophils Percent Auto 77.5 % (45.5-73.1); Platelet Count Result 309 k/mm3 (150-375); Red Cell Distribution Width 13.4 % (11.5-14.5); White Blood Count 13.4 K/mm3 (4.5-10.0)
[2023-09-06] MEDS: ONDANSETRON INJ 4 MG/2 ML VIAL IV PUSH (01:59)
[2023-09-06] MEDS: HYDROmorphone HCL INJ (*CRX) 1 MG/ML SYR 0.5 MG IV PUSH (01:59)
[2023-09-06 02:35] VITALS: BP 137/77; PULSE 89; RESP 16; O2SAT 94
[2023-09-06] MEDS: cefTRIAXone 2 GM/NS 100 ML 2 GM/100 ML BAG IVPB (02:35)
[2023-09-06 02:54] VITALS: BP 158/92; PULSE 81; RESP 16; O2SAT 100
== END 2023-09-06 02:56 | disposition home or self-care (01) ==
PROVIDERS: Emergency Provider Student in an Organized Health Care Education/Training Program; PCP Internal Medicine
DX: N39.0 Urinary tract infection, site not specified (principal); E11.9 Type 2 diabetes mellitus without complications; F17.290 Nicotine dependence, other tobacco product, uncomplicated; Z90.49 Acquired absence of other specified parts of digestive tract; Z79.899 Other long term (current) drug therapy; Z79.4 Long term (current) use of insulin
CPT/HCPCS: 36415; 74177; 80053; 81001; 81025; 83690; 85025; 87077; 87086; 87088; 87186; 96361; 96365; 96375; 96376; 99284; J0696; J1170; J2405; J7030; Q9967

== ENCOUNTER 2023-10-28 08:58 | Emergency (ER) | payer BC, OTHER, SELFPAY ==
--- NOTE | ~2023-10-28 | CT_ITS ---
EXAMINATION: CT abdomen pelvis w con DATE: 10/28/2023 10:29 INDICATION: Abdominal pain. TECHNIQUE: Computed tomography (CT) of the abdomen and pelvis was performed with 100 mL Omnipaque 350 intravenous contrast. Automated exposure control and iterative reconstruction technique were employe d. The dose-length product was 1563.87 mGy-cm. COMPARISON: CT abdomen and pelvis 09/06/2023 FINDINGS: The visualized portions of the lung bases demonstrate mild atelectasis. No pleural effusion . There is prominent extrapleural fat on the right. The heart size is normal. No pericardial effusion . Calcified left hilar and mediastinal lymph nodes are consistent with old granulomatous disease. The liver and spleen are normal. There are changes of cholecystectomy. The pancreas, adrenal glands, and kidneys are normal. There are no dilated loops of bowel. The appendix is normal. There is an infraum bilical ventral hernia containing nonobstructed small bowel. There are no pathologically enlarged lym ph nodes. There is no free intraperitoneal fluid. There is mild thoracic and lumbar spondylosis. IMPRESSION: 1. Infraumbilical ventral hernia containing nonobstructed small bowel. Reviewed, dictated and finalized at location A.
--- NOTE | ~2023-10-28 | XR_ITS ---
EXAMINATION: XR chest 2V DATE: 10/28/2023 09:54 INDICATION: Chest pain. Shoulder pain. TECHNIQUE: Frontal and lateral views of the chest were obtained. COMPARISON: CT abdomen and pelvis 09/06/2023 FINDINGS: There is no pneumonia, pleural effusion, or pneumothorax. The heart size is normal. IMPRESSION: 1. No acute cardiopulmonary disease. Reviewed, dictated and finalized at location A.
[2023-10-28 09:04] VITALS: BP 176/114; PULSE 112; RESP 18; TEMP 36.4; O2SAT 100
--- NOTE | 2023-10-28 09:08 | ECG_ITS ---
Test Date: 2023-10-28 09:10:07 Measurements Intervals [place] Rate: 107 P: 30 RI: 145 QRS: 63 QRSD: 89 T: 46 QT: 356 QTc: 475 Interpretive Statements SINUS TACHYCARDIA LOW QRS VOLTAGE IN PRECORDIAL LEADS MINIMAL Q WAVES- INFERIOR LEADS CONSIDER ANTERIOR INFARCT, AGE INDETERMINATE ABNORMAL ECG No previous ECG available for comparison Electronically Signed On 10-28-2023 09:23:36 CDT by Merrill Wilson D.O.
[2023-10-28] MEDS: SODIUM CHLORIDE 0.9% IV 1,000 ML 999 ML IV CONT ×2 (09:30→11:58)
[2023-10-28 09:31] VITALS: BP 136/87; PULSE 110; RESP 13; O2SAT 100
[2023-10-28] MEDS: PANTOPRAZOLE SODIUM IV 40 MG VIAL IV PUSH (09:31)
[2023-10-28] MEDS: KETOROLAC 30 MG/ML VIAL (*BKC) IV PUSH (09:31)
[2023-10-28] MEDS: FAMOTIDINE 20 MG/2 ML VIAL IV PUSH (09:31)
[2023-10-28] MEDS: ONDANSETRON INJ 4 MG/2 ML VIAL IV PUSH (09:31)
[2023-10-28] MEDS: MORPHINE SULFATE (*CRX) 4 MG/ML INJ IV PUSH (09:32)
[2023-10-28 09:37] LABS: Basophils Percent Auto 0.2 % (0.2-1.2); Eosinophils Absolute Auto 0.1 K/mm3 (0-0.3); Eosinophils Percent Auto 0.5 % (0-4.4); Hematocrit 43.8 % (37.0-47.0); Hemoglobin 14.5 g/dL (12.0-15.0); Immature Granulocyte Absolute 0.06 K/mm3 (0.00-0.031); Immature Granulocyte Percent A 0.5 % (0-0.5); Lymphocytes Absolute Auto 1.88 K/mm3 (0.9-3.2); Lymphocytes Percent Auto 14.8 % (18.3-44.2); Mean Corpuscular HGB Conc 33.1 g/dl (32-36); Mean Corpuscular Hemoglobin 29.1 pg (26-34); Mean Corpuscular Volume 87.8 fl (80-100); Mean Platelet Volume 9.7 fl (7.4-10.4); Monocytes Absolute Auto 0.5 K/mm3 (0.1-0.6); Monocytes Percent Auto 3.5 % (2.6-8.5); Neutrophils Absolute Auto 10.3 K/mm3 (1.3-6.7); Neutrophils Percent Auto 80.5 % (45.5-73.1); Platelet Count Result 412 k/mm3 (150-375); Red Blood Count 4.99 M/mm3 (4.2-5.4); Red Cell Distribution Width 13.8 % (11.5-14.5); White Blood Count 12.7 K/mm3 (4.5-10.0)
[2023-10-28 09:44] LABS: Alanine Aminotransferase 29 U/L (6-35); Albumin Level 4.6 g/dL (3.5-5.1); Alkaline Phosphatase 92 U/L (38-126); Anion Gap 14 mmol/L (4-12); Aspartate Amino Transferase 30 U/L (14-36); Bilirubin,Total 0.5 mg/dL (0.2-1.3); Blood Urea Nitrogen 9 mg/dL (7-17); Calcium 9.4 mg/dL (8.4-10.2); Carbon Dioxide 22 mmol/L (22-30); Chloride 97 mmol/L (98-107); Estimated CRCL calculation 164 ml/min; Estimated Glomerular Filt Rate > 60; Glucose 251 mg/dL (65-110); Lipase 137 U/L (23-300); Potassium 4.8 mmol/L (3.4-5.0); Sodium 133 mmol/L (137-145)
[2023-10-28 09:44] LABS: Lactic Acid Reflex 2.8 mmol/L (0.7-2.0)
[2023-10-28 09:55] LABS: Troponin I < 0.012 ng/mL (0.000-0.034)
[2023-10-28 09:57] LABS: Prothrombin Time 13.4 Seconds (11.1-14.7)
[2023-10-28 09:58] LABS: Partial Thromboplastin Time 21.6 Seconds (22.3-36.8)
[2023-10-28 10:54] VITALS: BP 150/95; PULSE 108; RESP 14; O2SAT 100
[2023-10-28] MEDS: METOCLOPRAMIDE HCL INJ 10 MG/2 ML VIAL IV PUSH (10:55)
[2023-10-28] MEDS: HYDROmorphone HCL INJ (*CRX) 1 MG/ML SYR IV PUSH (10:55)
[2023-10-28] MEDS: diphenhydrAMINE HCl INJ 50 MG/ML VIAL 25 MG IV PUSH (10:56)
[2023-10-28 11:08] LABS: BEDSIDEPREGUCG Negative (Negative)
[2023-10-28 11:18] LABS: Add Urine Microscopic? NO; Appearance Urine Clear (Clear); Bilirubin Urine Negative (Negative); Blood Urine Negative (Negative); Color Urine Yellow (Yellow); Glucose Urine UA 2+ mg/dL (Negative); Ketones Urine 3+ mg/dL (Negative); Leukocyte Esterase Ur Negative LEU/UL (Negative); Nitrate Urine Negative (Negative); Protein Urine Negative (Negative); Specific Grav Ur 1.039 (1.001-1.035); Urobilinogen Urine 0.2 mg/dL (<2.0)
[2023-10-28 11:38] VITALS: BP 113/91; PULSE 100; RESP 14; TEMP 36.3; O2SAT 100
--- NOTE | 2023-10-28 11:41 | ED.ABDPAIN ---
HPI - Abdominal Pain General Chief Complaint: Abdominal Pain Stated Complaint: abdominal pain, vomiting Time Seen by Provider: 10/28/23 09:00 History of Present Illness HPI narrative: Patient is a 38-year-old female who presents to the ER with complaints generalized abdominal pain. She reports she has a history of pancreatitis and chronic abdominal pain. Patient endorses generalized abdominal pain, specifically in her upper quadrants. She also endorses nausea and vomiting. Patient reports her last bowel movement was this morning and reports no urinary symptoms. She denies chest pain, shortness of breath, or one-sided weakness/tingling/numbness. Pt reports she does smoke marijuana recreationally. MD elicited complaint: abdominal pain Related Data Home Medications Medication Instructions Recorded Confirmed gabapentin 300 mg capsule 300 mg PO BID 08/21/19 04/19/23 lisinopril 10 mg tablet 10 mg PO DAILY 08/21/19 04/19/23 trazodone 100 mg tablet 100 mg PO HS 08/21/19 04/19/23 dicyclomine 20 mg tablet 20 mg PO QID PRN abd pain 04/01/22 04/19/23 omeprazole 20 mg capsule,delayed 20 mg PO DAILY 04/01/22 04/19/23 release rosuvastatin 40 mg tablet 40 mg PO HS 04/01/22 04/19/23 insulin glargine 100 unit/mL (3 25 unit subcut Q12H 04/19/23 04/19/23 mL) subcutaneous pen (Lantus Solostar U-100 Insulin) insulin lispro 100 unit/mL 10 unit subcut TID 04/19/23 04/19/23 subcutaneous pen ondansetron 4 mg disintegrating 4 - 8 mg PO Q8H PRN Nausea And 04/19/23 04/19/23 tablet Vomiting Allergies Allergy/AdvReac Type Severity Reaction Status Date / Time No Known Allergies Allergy Verified 04/19/23 19:08 Review of Systems Review of Systems: All systems reviewed & are unremarkable except as noted in HPI and below PMFSH Family History Family History Mother Diabetes mellitus Social History Social History Smoking status: Current every day smoker Tobacco type: e-cigarettes/vaping Alcohol intake: never Substance use type: marijuana Other substance usage details: daily Do You Feel Safe in your Home?: Yes Lack of Transportation: No Lack of Food: Never True Current Housing: I Have Housing Concerned About Future Housing: No Difficulty Paying Gas/Electric Bills: No Difficulty Paying for Meds: YES Currently Unemployed: YES Education: High School Diploma/GED Difficulty w/ Childcare or Family Care: No Spiritual care concerns: No Exam Narrative: GENERAL: Ill-appearing, well-nourished, non-toxic, in acute distress d/t abdominal pain. HEAD: Normocephalic, atraumatic. NECK: Supple. No adenopathy, no masses. RESPIRATORY: Airway patent, respirations nonlabored. Clear to auscultation bilaterally, no rales, rhonchi, wheezing. CARDIOVASCULAR: Regular rate and rhythm without murmurs, rubs, or gallops. Peripheral pulses 2+ and equal bilaterally. ABDOMINAL: Soft, tender, guarded, nondistended, no hepatosplenomegaly. Normoactive BS. No palpable hernia. MUSCULOSKELETAL: Moves all extremities. Strength/ROM intact without gross deformities. SKIN: Warm, dry, normal color. No rashes. NEURO: A&O X3. Speech clear. Cranial nerves II-XII grossly intact. No ataxic movements. PSYCHIATRIC: Tearful, loudly crying out in pain during interaction. Psych: Mental Status: mental status grossly normal Course Vital Signs Vital signs: Vital Signs Temperature 36.4 C L 10/28/23 09:04 Pulse Rate 112 H 10/28/23 09:04 Respiratory Rate 18 10/28/23 09:04 Blood Pressure 176/114 H 10/28/23 09:04 Pulse Oximetry 100 10/28/23 09:04 Oxygen Delivery Room Air 10/28/23 09:04 Temperature 36.3 C L 10/28/23 11:38 Pulse Rate 100 10/28/23 11:38 Respiratory Rate 14 10/28/23 11:38 Blood Pressure 113/91 H 10/28/23 11:38 Pulse Oximetry 100 10/28/23 11:38 Oxygen Delivery Room Air
[2023-10-28] MEDS: HYDROmorphone HCL INJ (*CRX) 1 MG/ML SYR IM (11:58)
[2023-10-28 12:25] LABS: Amphetamine Screen Urine Negative (Negative); Barbiturate Screen Urine Negative (Negative); Benzodiazepines Screen Urine Negative (Negative); Cannabinoid Screen Urine Positive (Negative); Cocaine Screen Urine Negative (Negative); Methadone Screen Urine Negative (Negative); Opiate Screen Urine Positive (Negative); Phencyclidine Screen Urine Negative (Negative)
[2023-10-28 12:31] LABS: Reflex Lactic Acid Yes or No Add Lactic
[2023-10-28 13:12] LABS: Lactic Acid 1.8 mmol/L (0.7-2.0)
[2023-10-28 13:57] VITALS: BP 106/59; PULSE 82; RESP 16; TEMP 36.6; O2SAT 100
== END 2023-10-28 13:59 | disposition home or self-care (01) ==
PROVIDERS: Emergency Provider Registered Nurse; PCP Internal Medicine
DX: R10.13 Epigastric pain (principal); R11.2 Nausea with vomiting, unspecified; F12.90 Cannabis use, unspecified, uncomplicated; E11.9 Type 2 diabetes mellitus without complications; I10 Essential (primary) hypertension; E78.00 Pure hypercholesterolemia, unspecified; F17.290 Nicotine dependence, other tobacco product, uncomplicated; Z79.4 Long term (current) use of insulin; Z79.899 Other long term (current) drug therapy; K43.9 Ventral hernia without obstruction or gangrene; R00.0 Tachycardia, unspecified; R94.31 Abnormal electrocardiogram [ECG] [EKG]
CPT/HCPCS: 36415; 71046; 74177; 80053; 80307; 81003; 81025; 83605; 83690; 84484; 85025; 85610; 85730; 93005; 96361; 96372; 96374; 96375; 99284; J1170; J1200; J1885; J2270; J2405; J2470; J2765; J7030; Q9967

== ENCOUNTER 2023-10-30 03:36 | Emergency (ER) | payer BC, OTHER, SELFPAY ==
--- NOTE | ~2023-10-30 | CT_ITS ---
EXAMINATION: CT abdomen pelvis w con DATE: 10/30/2023 05:05 INDICATION: Abdominal pain. TECHNIQUE: Computed tomography (CT) of the abdomen and pelvis was performed with 100 mL Omnipaque 350 intravenous contrast. Automated exposure control and iterative reconstruction technique were employe d. The dose-length product was 1566.99 mGy-cm. COMPARISON: CT abdomen and pelvis 10/28/2023 FINDINGS: The visualized portions of the lung bases demonstrate mild atelectasis. No pleural effusion . The heart size is normal. No pericardial effusion. The liver is normal. Calcifications in the splee n are consistent with old granulomatous disease. There are changes of cholecystectomy. The pancreas, adrenal glands, and kidneys are normal. There are no dilated loops of bowel. The appendix is normal. There is an infraumbilical ventral hernia containing nonobstructed small bowel. There are no patholog ically enlarged lymph nodes. There is no free intraperitoneal fluid. There is mild thoracic and lumba r spondylosis. IMPRESSION: 1. Infraumbilical ventral hernia containing nonobstructed small bowel. Reviewed, dictated and finalized at location A.
[2023-10-30 03:41] VITALS: BP 148/94; PULSE 92; RESP 15; O2SAT 99
[2023-10-30 04:02] LABS: Basophils Percent Auto 0.3 % (0.2-1.2); Eosinophils Absolute Auto 0.1 K/mm3 (0-0.3); Eosinophils Percent Auto 1.3 % (0-4.4); Hematocrit 39.1 % (37.0-47.0); Hemoglobin 13.1 g/dL (12.0-15.0); Immature Granulocyte Absolute 0.02 K/mm3 (0.00-0.031); Immature Granulocyte Percent A 0.2 % (0-0.5); Lymphocytes Absolute Auto 2.28 K/mm3 (0.9-3.2); Lymphocytes Percent Auto 25.3 % (18.3-44.2); Mean Corpuscular HGB Conc 33.5 g/dl (32-36); Mean Corpuscular Hemoglobin 29.6 pg (26-34); Mean Corpuscular Volume 88.3 fl (80-100); Mean Platelet Volume 9.5 fl (7.4-10.4); Monocytes Absolute Auto 0.5 K/mm3 (0.1-0.6); Monocytes Percent Auto 5.8 % (2.6-8.5); Neutrophils Absolute Auto 6.1 K/mm3 (1.3-6.7); Neutrophils Percent Auto 67.1 % (45.5-73.1); Platelet Count Result 286 k/mm3 (150-375); Red Blood Count 4.43 M/mm3 (4.2-5.4); Red Cell Distribution Width 13.8 % (11.5-14.5)
[2023-10-30] MEDS: diphenhydrAMINE HCl INJ 50 MG/ML VIAL IV PUSH (04:19)
[2023-10-30] MEDS: PROCHLORPERAZINE EDISYLATE 10 MG/2 ML VIAL IV PUSH (04:19)
[2023-10-30] MEDS: HYDROmorphone HCL INJ (*CRX) 1 MG/ML SYR IV PUSH ×2 (04:19→05:43)
[2023-10-30] MEDS: SODIUM CHLORIDE 0.9% IV 1,000 ML 999 ML IV CONT (04:19)
[2023-10-30 04:20] LABS: BEDSIDEPREGUCG Negative (Negative)
[2023-10-30 04:23] LABS: Alanine Aminotransferase 25 U/L (6-35); Albumin Level 4.1 g/dL (3.5-5.1); Alkaline Phosphatase 87 U/L (38-126); Anion Gap 12 mmol/L (4-12); Aspartate Amino Transferase 27 U/L (14-36); Bilirubin,Total 0.2 mg/dL (0.2-1.3); Blood Urea Nitrogen 8 mg/dL (7-17); Calcium 8.8 mg/dL (8.4-10.2); Carbon Dioxide 21 mmol/L (22-30); Chloride 102 mmol/L (98-107); Estimated CRCL calculation 169 ml/min; Estimated Glomerular Filt Rate > 60; Glucose 171 mg/dL (65-110); Lipase 73 U/L (23-300); Potassium 3.9 mmol/L (3.4-5.0); Sodium 135 mmol/L (137-145)
[2023-10-30 04:27] LABS: Add Urine Microscopic? NO; Appearance Urine Clear (Clear); Bilirubin Urine Negative (Negative); Blood Urine Negative (Negative); Color Urine Yellow (Yellow); Glucose Urine UA Negative (Negative); Ketones Urine Negative (Negative); Leukocyte Esterase Ur Negative LEU/UL (Negative); Nitrate Urine Negative (Negative); Protein Urine Negative (Negative); Specific Grav Ur 1.016 (1.001-1.035); Urobilinogen Urine 0.2 mg/dL (<2.0); pH Urine 6.5 (5.0-9.0)
--- NOTE | 2023-10-30 05:09 | ED.GENADULT ---
HPI - General Adult General Chief complaint: Abdominal Pain Stated complaint: abd pain Time Seen by Provider: 10/30/23 03:39 History of Present Illness HPI narrative: Patient is a 38-year-old female who presents emergency department with chief complaint of nausea vomiting and abdominal pain. Patient has history of pancreatitis and chronic abdominal pain patient does use marijuana last use yesterday. Patient reports that she was seen in the emergency department recently for nausea vomiting reports she has continued to have a nausea vomiting and reports that she has pain in the epigastric area where she has pancreatitis in the past the patient reports had a cholecystectomy Related Data Home Medications Medication Instructions Recorded Confirmed gabapentin 300 mg capsule 300 mg PO BID 08/21/19 04/19/23 lisinopril 10 mg tablet 10 mg PO DAILY 08/21/19 04/19/23 trazodone 100 mg tablet 100 mg PO HS 08/21/19 04/19/23 dicyclomine 20 mg tablet 20 mg PO QID PRN abd pain 04/01/22 04/19/23 omeprazole 20 mg capsule,delayed 20 mg PO DAILY 04/01/22 04/19/23 release rosuvastatin 40 mg tablet 40 mg PO HS 04/01/22 04/19/23 insulin glargine 100 unit/mL (3 25 unit subcut Q12H 04/19/23 04/19/23 mL) subcutaneous pen (Lantus Solostar U-100 Insulin) insulin lispro 100 unit/mL 10 unit subcut TID 04/19/23 04/19/23 subcutaneous pen ondansetron 4 mg disintegrating 4 - 8 mg PO Q8H PRN Nausea And 04/19/23 04/19/23 tablet Vomiting Allergies Allergy/AdvReac Type Severity Reaction Status Date / Time No Known Allergies Allergy Verified 04/19/23 19:08 Review of Systems Review of Systems: A 10 system review of systems was completed on the patient and is negative except for what is stated in the HPI. Nursing and ancillary documentation was reviewed. [facility] Family History Family History Mother Diabetes mellitus Social History Social History Smoking status: Current every day smoker Tobacco type: e-cigarettes/vaping Alcohol intake: never Substance use type: marijuana Other substance usage details: daily Do You Feel Safe in your Home?: Yes Lack of Transportation: No Lack of Food: Never True Current Housing: I Have Housing Concerned About Future Housing: No Difficulty Paying Gas/Electric Bills: No Difficulty Paying for Meds: YES Currently Unemployed: YES Education: High School Diploma/GED Difficulty w/ Childcare or Family Care: No Spiritual care concerns: No Exam Narrative: GENERAL: Well-appearing, well-nourished, and in moderate acute pain distress. HEAD: Normocephalic, atraumatic. EYES: PERRLA and EOMI. ENT: Nares clear, no rhinorrhea or epistaxis. Mucous membranes moist. NECK: Supple. CHEST: Clear to auscultation. No respiratory distress. HEART: Regular rate and rhythm. No murmur heard. Normal peripheral pulses. ABDOMEN: Soft, tenderness to palpation in the epigastric region, nondistended, normal active bowel sounds. EXTREMITIES: Normal range of motion. No edema. SKIN: Warm, dry, no rash. NEURO: No focal deficits. Alert and oriented x3. PSYCH: Normal mood and affect. Course Vital Signs Vital signs: Vital Signs Pulse Rate 92 10/30/23 03:41 Respiratory Rate 15 10/30/23 03:41 Blood Pressure 148/94 H 10/30/23 03:41 Pulse Oximetry 99 10/30/23 03:41 Oxygen Delivery Room Air 10/30/23 03:41 Pulse Rate 83 10/30/23 05:23 Respiratory Rate 20 10/30/23 05:23 Blood Pressure 133/89 10/30/23 05:23 Pulse Oximetry 99 10/30/23 05:23 Oxygen Delivery Room Air 10/30/23 03:41 Medical Decision Making [facility] Narrative Medical decision making narrative: Differential diagnosis includes pancreatitis, diverticulitis, cannabis hyperemesis, gastroenteritis Patient received antiemetics in the emergency department initially starting off wit
[2023-10-30] MEDS: HALOPERIDOL LACTATE 5 MG/ML VIAL IV PUSH (05:18)
[2023-10-30 05:23] VITALS: BP 133/89; PULSE 83; RESP 20; O2SAT 99
== END 2023-10-30 07:37 | disposition home or self-care (01) ==
PROVIDERS: Emergency Provider Emergency Medicine; PCP Internal Medicine
DX: R11.2 Nausea with vomiting, unspecified (principal); F17.290 Nicotine dependence, other tobacco product, uncomplicated; Z79.4 Long term (current) use of insulin; Z79.899 Other long term (current) drug therapy; K43.9 Ventral hernia without obstruction or gangrene
CPT/HCPCS: 36415; 74177; 80053; 81003; 81025; 83690; 85025; 96361; 96374; 96375; 96376; 99284; J0780; J1170; J1200; J1630; J7030; Q9967

== ENCOUNTER 2023-11-14 07:57 | Emergency (ER) | payer BC, OTHER, SELFPAY ==
--- NOTE | ~2023-11-14 | XR_ITS ---
EXAMINATION: XR chest 2V DATE: 11/14/2023 08:46 INDICATION: Chest pain and shortness of breath TECHNIQUE: PA and lateral views of the chest were obtained. COMPARISON: Chest radiograph dated 10/28/[address] dated 10/30/2023 FINDINGS: The lungs are clear with no focal airspace opacities, pulmonary edema, pleural effusion or pneumothor ax. The cardiomediastinal silhouette is normal. Cholecystectomy clips in right upper quadrant. Modera te thoracic spondylosis. IMPRESSION: 1. No acute cardiopulmonary disease. Reviewed, dictated and finalized at location A.
[2023-11-14 07:58] VITALS: BP 154/93; PULSE 113; RESP 16; TEMP 37.1; O2SAT 98
--- NOTE | 2023-11-14 08:11 | ECG_ITS ---
Test Date: 2023-11-14 08:09:32 Measurements Intervals [place] Rate: 113 P: 35 MS: 150 QRS: 63 QRSD: 92 T: 43 QT: 337 QTc: 463 Interpretive Statements SINUS TACHYCARDIA NONSPECIFIC T-WAVE ABNORMALITY ABNORMAL RHYTHM ECG Compared to ECG 10/28/2023 09:10:07 no change compared to prior EKG Electronically Signed On 11-14-2023 11:39:29 CDT by Ac Piper M.D.
[2023-11-14 08:45] LABS: Basophils Percent Auto 0.2 % (0.2-1.2); Hematocrit 42.7 % (37.0-47.0); Hemoglobin 13.8 g/dL (12.0-15.0); Immature Granulocyte Absolute 0.06 K/mm3 (0.00-0.031); Immature Granulocyte Percent A 0.5 % (0-0.5); Lymphocytes Absolute Auto 0.62 K/mm3 (0.9-3.2); Mean Corpuscular HGB Conc 32.3 g/dl (32-36); Mean Corpuscular Hemoglobin 28.5 pg (26-34); Monocytes Absolute Auto 0.2 K/mm3 (0.1-0.6); Monocytes Percent Auto 1.4 % (2.6-8.5); Neutrophils Absolute Auto 11.4 K/mm3 (1.3-6.7); Neutrophils Percent Auto 92.9 % (45.5-73.1); Platelet Count Result 293 k/mm3 (150-375); Red Blood Count 4.85 M/mm3 (4.2-5.4); Red Cell Distribution Width 13.8 % (11.5-14.5); White Blood Count 12.3 K/mm3 (4.5-10.0)
[2023-11-14 08:57] LABS: Prothrombin Time 13.1 Seconds (11.1-14.7)
[2023-11-14 08:58] LABS: Alanine Aminotransferase 29 U/L (6-35); Albumin Level 4.2 g/dL (3.5-5.1); Alkaline Phosphatase 111 U/L (38-126); Anion Gap 13 mmol/L (4-12); Aspartate Amino Transferase 30 U/L (14-36); Bilirubin,Total 0.5 mg/dL (0.2-1.3); Blood Urea Nitrogen 9 mg/dL (7-17); Calcium 9.2 mg/dL (8.4-10.2); Carbon Dioxide 23 mmol/L (22-30); Chloride 99 mmol/L (98-107); Estimated CRCL calculation 169 ml/min; Estimated Glomerular Filt Rate > 60; Glucose 295 mg/dL (65-110); Lipase 51 U/L (23-300); Potassium 4.1 mmol/L (3.4-5.0); Sodium 135 mmol/L (137-145)
[2023-11-14 08:59] LABS: Partial Thromboplastin Time 21.2 Seconds (22.3-36.8)
[2023-11-14 09:00] VITALS: BP 132/74; PULSE 72; RESP 16; TEMP 36.6; O2SAT 98
[2023-11-14 09:10] LABS: Troponin I < 0.012 ng/mL (0.000-0.034)
--- NOTE | 2023-11-14 09:29 | ED.CHESTPAIN ---
HPI - Chest Pain General Chief Complaint: Chest Pain Stated Complaint: SOB/CP, known pancreatitis Time Seen by Provider: 11/14/23 09:18 History of Present Illness HPI narrative: 38-year-old female presented emergency department for evaluation for left-sided chest pain and left upper abdominal pain. Patient states the pain has been ongoing for the last 4 years. Patient states that acutely started yesterday. Patient states this started while she was sleeping. Patient denies any prior cardiac history but does report a prior history of pancreatitis. Patient states she only follow-up the primary care physician and does not have a GI physician that she follows up with. Patient does have prior history cannabinoid hyperemesis. Related Data Home Medications Medication Instructions Recorded Confirmed gabapentin 300 mg capsule 300 mg PO BID 08/21/19 04/19/23 lisinopril 10 mg tablet 10 mg PO DAILY 08/21/19 04/19/23 trazodone 100 mg tablet 100 mg PO HS 08/21/19 04/19/23 dicyclomine 20 mg tablet 20 mg PO QID PRN abd pain 04/01/22 04/19/23 omeprazole 20 mg capsule,delayed 20 mg PO DAILY 04/01/22 04/19/23 release rosuvastatin 40 mg tablet 40 mg PO HS 04/01/22 04/19/23 insulin glargine 100 unit/mL (3 25 unit subcut Q12H 04/19/23 04/19/23 mL) subcutaneous pen (Lantus Solostar U-100 Insulin) insulin lispro 100 unit/mL 10 unit subcut TID 04/19/23 04/19/23 subcutaneous pen ondansetron 4 mg disintegrating 4 - 8 mg PO Q8H PRN Nausea And 04/19/23 04/19/23 tablet Vomiting Allergies Allergy/AdvReac Type Severity Reaction Status Date / Time No Known Allergies Allergy Verified 11/14/23 08:09 Review of Systems Review of Systems: All systems reviewed & are unremarkable except as noted in HPI and below PMFSH Family History Family History Mother Diabetes mellitus Social History Social History Smoking status: Current every day smoker Tobacco type: e-cigarettes/vaping Alcohol intake: never Substance use type: marijuana Other substance usage details: daily Do You Feel Safe in your Home?: Yes Lack of Transportation: No Lack of Food: Never True Current Housing: I Have Housing Concerned About Future Housing: No Difficulty Paying Gas/Electric Bills: No Difficulty Paying for Meds: YES Currently Unemployed: YES Education: High School Diploma/GED Difficulty w/ Childcare or Family Care: No Spiritual care concerns: No Exam Narrative: APPEARANCE: Well appearing, no pain, no distress, well-nourished. HEAD: normocephalic, atraumatic. EYES: PERRLA/EOMI, conjunctivae clear. NOSE: Normal no drainage EARS:TMS clear with good light reflex. THROAT: Pharynx clear, no exudate. NECK: Supple. No adenopathy, no masses. RESPIRATORY: Airway patent, respirations nonlabored. Clear to auscultation bilaterally, no rales, rhonchi, wheezing. CARDIOVASCULAR: Regular rate and rhythm without murmurs rubs or gallops. ABDOMINAL: Soft, nontender, nondistended, normal bowel sounds MUSCULOSKELETAL: Moves all extremities. Strength/ROM intact, No edema, No calf tenderness. NEURO: Alert. Cranial nerves II through XII intact. Grossly intact SKIN: Warm, dry. Normal Color Course Vital Signs Vital signs: Vital Signs Temperature 98.8 F 11/14/23 07:58 Pulse Rate 113 H 11/14/23 07:58 Respiratory Rate 16 11/14/23 07:58 Blood Pressure 154/93 H 11/14/23 07:58 Pulse Oximetry 98 11/14/23 07:58 Oxygen Delivery Room Air 11/14/23 07:58 Temperature 97.9 F 11/14/23 11:00 Pulse Rate 80 11/14/23 11:00 Respiratory Rate 16 11/14/23 11:00 Blood Pressure 132/80 11/14/23 11:00 Pulse Oximetry 100 11/14/23 11:00 Oxygen Delivery Room Air 11/14/23 08:38 MDM - Chest Pain MDM Narrative Medical decision making narrative: 38-year-old female presented emergency department for e
[2023-11-14 10:00] VITALS: BP 130/74; PULSE 78; RESP 16; TEMP 36.6; O2SAT 100
[2023-11-14] MEDS: KETOROLAC 15 MG/ML VIAL (*BKC) IV PUSH (10:06)
[2023-11-14] MEDS: FAMOTIDINE 20 MG/2 ML VIAL IV PUSH (10:06)
[2023-11-14] MEDS: BELLADONNA ALK/PHENOB ELIX 10 ML, MAG HYDROX/ALUMINUM HYD/SIMETH 30 ML, LIDOCAINE HCL 2... PO (10:06)
[2023-11-14] MEDS: PANTOPRAZOLE SODIUM IV 40 MG VIAL IV PUSH (10:06)
[2023-11-14 10:18] LABS: D Dimer < 0.22 ug/mL (<0.48)
[2023-11-14 11:00] VITALS: BP 132/80; PULSE 80; RESP 16; TEMP 36.6; O2SAT 100
== END 2023-11-14 11:15 | disposition home or self-care (01) ==
PROVIDERS: Emergency Provider Emergency Medicine; PCP Internal Medicine
DX: R10.12 Left upper quadrant pain (principal); R07.89 Other chest pain; Z79.4 Long term (current) use of insulin; F17.290 Nicotine dependence, other tobacco product, uncomplicated; F12.90 Cannabis use, unspecified, uncomplicated
CPT/HCPCS: 36415; 71046; 80053; 83690; 84484; 85025; 85380; 85610; 85730; 93005; 96374; 96375; 99284; A9270; J1885; J2470

== ENCOUNTER → 2023-11-17 14:36 | Outpatient (CLI) | payer BC, OTHER, SELFPAY ==
--- NOTE | ~2023-11-17 | XR_ITS ---
XR chest 2V 11/17/2023 14:53 Indication: Left rib pain Procedure: 2 view chest Comparison: No prior studies for comparison. Findings: Heart size normal. No focal air space disease, pulmonary edema, pleural effusion or suspect ed pneumothorax. No acute osseous abnormality. Impression: 1: No acute cardiopulmonary disease. Reviewed, dictated and finalized at location B. Impression: 1: No acute cardiopulmonary disease.
== END ==
PROVIDERS: PCP Internal Medicine; Visit Provider Internal Medicine
DX: M94.0 Chondrocostal junction syndrome [Tietze] (principal); R07.82 Intercostal pain
CPT/HCPCS: 71046

== ENCOUNTER 2024-01-18 08:54 | Emergency (ER) | payer BC, OTHER, SELFPAY ==
[2024-01-18 09:00] VITALS: BP 112/69; PULSE 100; RESP 20; TEMP 36.6; O2SAT 99
--- NOTE | 2024-01-18 09:26 | ED.URI ---
HPI - URI/Sore Throat General Chief Complaint: Upper Respiratory Infection Stated Complaint: head congestion/throat/right ear Time Seen by Provider: 01/18/24 09:26 Source: patient, RN notes reviewed and old records reviewed Mode of arrival: ambulatory Limitations: no limitations History of Present Illness HPI Narrative: 38-year-old female to Express Care with complaint of cough, headache, right ear pain, right ear pressure since Wednesday. Patient states symptoms briefly improved yesterday and became worse today. Patient has attempted to treat symptoms at home with DayQuil. patient able to tolerate fluids by mouth. Respirations even and nonlabored. Patient resting comfortably in exam room in no acute distress. Related Data Home Medications ?Medication ?Instructions ?Recorded ?Confirmed ?Last Taken ?Type gabapentin 300 mg capsule 300 mg PO BID 08/21/19 01/18/24 Unknown History lisinopril 10 mg tablet 10 mg PO DAILY 08/21/19 01/18/24 Unknown History trazodone 100 mg tablet 100 mg PO HS 08/21/19 01/18/24 Unknown History dicyclomine 20 mg tablet 20 mg PO QID PRN abd pain 04/01/22 01/18/24 Unknown History omeprazole 20 mg capsule,delayed 20 mg PO DAILY 04/01/22 01/18/24 Unknown History release rosuvastatin 40 mg tablet 40 mg PO HS 04/01/22 01/18/24 Unknown History insulin glargine 100 unit/mL (3 25 unit subcut Q12H 04/19/23 01/18/24 Unknown History mL) subcutaneous pen (Lantus Solostar U-100 Insulin) insulin lispro 100 unit/mL 10 unit subcut TID 04/19/23 01/18/24 Unknown History subcutaneous pen aripiprazole 5 mg tablet mg 01/18/24 Unknown History blood sugar diagnostic (Accu-Chek 01/18/24 01/18/24 Unknown History Guide test strips) blood-glucose meter (Accu-Chek 01/18/24 01/18/24 Unknown History Guide Me Glucose Meter) blood-glucose meter,continuous 01/18/24 01/18/24 Unknown History (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 G7 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) blood-glucose sensor (Dexcom G7 01/18/24 01/18/24 Unknown History Sensor device) bupropion HCl 150 mg 24 hr tablet, mg PO 01/18/24 Unknown History extended release Allergies Allergy/AdvReac Type Severity Reaction Status Date / Time No Known Allergies Allergy Verified 01/18/24 09:18 Review of Systems Review of Systems: All systems reviewed & are unremarkable except as noted in HPI and below Constitutional: Constitutional: Reports as per HPI and Reports headache(s) Eyes: Eyes: Reports no additional eye complaints ENT: Reports as per HPI and Reports otalgia ( Right) Cardiovascular: Cardiovascular: Reports no additional cardiovascular complaints, Denies chest pain and Denies dyspnea Respiratory: Respiratory: Reports no additional respiratory complaints, Denies cough and Denies dyspnea Musculoskeletal: Musculoskeletal: Reports no additional musculoskeletal complaints Neurologic: Reports system reviewed and no additional complaints, except as documented Psychiatric: Psychiatric: Reports no additional psychiatric complaints PMF Family History Family History Mother Diabetes mellitus Social History Social History Smoking status: Current every day smoker Tobacco type: e-cigarettes/vaping Alcohol intake: never Substance use type: marijuana Other substance usage details: daily Do You Feel Safe in your Home?: Yes Lack of Transportation: No Lack of Food: Never True Current Housing: I Have Housing Concerned About Future Housing: No Difficulty Paying Gas/Electric Bills: No Difficulty Paying for Meds: YES Currently Unemployed: YES Education: High School Diploma/GED Difficulty w/ Childcare or Family Care: No Spiritual care concerns: No Comments At the time of my signature, I reviewed and agree with the nursing past medical, surgical, social, and family history. There is no relevant family history pertinent to the patient complaint. Exam Const: General: cooperative, comfortable, no acute distress, alert and well nourished Nutritional Appearance: well nourished Orientation/consciousness: patient oriented x3 Limitations: no limitations HENMT: Head: normal to inspection Ears: external ears normal and TM abnormal erythematous bilateral, with fluid behind the TM bilateral and with loss of landmarks on the right Face/Nose/Sinus: Normal external nose present, Normal nares present, normal facial exam, No erythema and No edema Face and sinus: normal facial exam, no erythema and no edema Mouth: Yes Normal oral and palatal mucosa present Throat: posterior oropharynx abnormal erythema and postnasal drainage Eyes: General: appearance normal, both eyes and all related structures Neck: Neck: normal visual inspection, full ROM and no meningeal signs Lymphatic: no lymphadenopathy noted and no lymphedema noted Chest: Chest palpation & inspection: normal inspection of the chest Resp: Effort & Inspection: normal respiratory effort and able to speak in complete sentences Auscultation: clear to auscultation bilaterally Cardio: Jugular venous distension: no JVD Rate: regular rate Rhythm: regular rhythm Back/Spine/Pelvis: Cervical Spine: cervical ROM normal Skin: General skin exam: normal color, no rashes or lesions noted and turgor normal Neuro: General: patient oriented x3, gait normal, moves all extremities and no meningeal signs Speech: normal speech Gait exam (Neuro): Normal gait present Extrem: General: normal to inspection, full ROM and capillary refill normal Psych: Appearance: grossly normal and well kempt Course Course Emergency Course: Some parts of this dictation were generated by voice recognition software and may contain typographical and/or grammatical inaccuracies. Level of Care: Express Care Visit Vital Signs Vital signs: Vital Signs Temperature 36.6 C 01/18/24 09:00 Pulse Rate 100 01/18/24 09:00 Respiratory Rate 20 01/18/24 09:00 Blood Pressure 112/69 01/18/24 09:00 Pulse Oximetry 99 01/18/24 09:00 Oxygen Delivery Room Air 01/18/24 09:00 Temperature 36.6 C 01/18/24 09:00 Pulse Rate 100 01/18/24 09:00 Respiratory Rate 20 01/18/24 09:00 Blood Pressure 112/69 01/18/24 09:00 Pulse Oximetry 99 01/18/24 09:00 Oxygen Delivery Room Air 01/18/24 09:00 reviewed MDM - URI/Sore Throat MDM Narrative Medical decision making narrative: 38-year-old female to Express Care with complaint of cough, headache, right ear pain, right ear pressure since Wednesday. Patient states symptoms briefly improved yesterday and became worse today. Patient has attempted to treat symptoms at home with DayQuil. patient able to tolerate fluids by mouth. Respirations even and nonlabored. Patient resting comfortably in exam room in no acute distress. On exam, bilateral TMs erythematous, bilateral EACs tender, loss of landmarks on right TM. posterior oropharynx with postnasal drainage. Findings consistent with bilateral otitis media. Patient is sitting comfortably in exam room nontoxic in appearance. Patient appropriate for outpatient treatment and follow-up. Discharge instructions reviewed with patient, as well as provided in writing per nursing staff. The instructions also include specific and strict return/GO TO THE ER as well as f/u information. All questions have been answered, and the patient deny any further questions with discharge and discharge plan. Some parts of this dictation were generated by voice recognition software and may contain typographical and/or grammatical inaccuracies. Differential Diagnosis Differential diagnosis: Likely upper respiratory infection, croup, otitis media, sinusitis, viral infection, bronchitis, influenza and pharyngitis Discharge Plan Discharge Clinical Impression: Bilateral acute otitis media Patient Disposition: Home, Self-Care Condition: Stable Instructions: Ear Infection (GEN) Additional Instructions: -Alternate Tylenol and Motrin per package directions for fever or pain. -Antihistamine medication such as Benadryl at night and Zyrtec/Claritin/Rosette during the day can help improve symptoms. -Use Flonase twice a day for 5 days then daily to help reduce the inflammation and dry up your sinuses. -You can also use Sudafed or Mucinex. Be sure to drink plenty of water with these medications at least 8 ounces with every dose and it is important to drink 8 to 10 glasses of water per day. Water is a natural decongestant -Eat and drink things that are easy to swallow, like tea or soup, or popsicles. -Oral rinses such as: Salt water gargles and/or may use topical anesthetic (eg. Chloraseptic spray) or lozenges to relieve dryness or throat pain). -Frequent hand washing or hand door assembler is one of the best ways to prevent spread of infection. -Using a vaporizer or humidifier at night will also help thin secretions and help with coughing up phlegm. -Follow up with primary care provider in 2-3 days if condition is not improving; or seek ER visit if you have trouble breathing, cannot drink enough fluids, have muffled voice, difficulty opening your mouth, or severe swelling. Patient Language: Slovenian Prescriptions: New amoxicillin 875 mg tablet 875 mg PO Q12H Qty: 20 0RF No Action omeprazole 20 mg capsule,delayed release(DR/EC) 20 mg PO DAILY rosuvastatin 40 mg tablet 40 mg PO HS dicyclomine 20 mg tablet 20 mg PO QID PRN (Reason: abd pain) Rx Instructions: abd pain and or cramping gabapentin 300 mg Capsule 300 mg PO BID trazodone 100 mg Tablet 100 mg PO HS lisinopril 10 mg Tablet 10 mg PO DAILY (DME) blood-glucose meter [Accu-Chek Guide Me Glucose Mtr] Misc MISCELLANEOUS (DME) Accu-Chek Guide test strips Strip MISCELLANEOUS aripiprazole 5 mg tablet bupropion HCl 150 mg tablet extended release 24 hr PO (DME) Dexcom G7 Sensor Device MISCELLANEOUS (DME) Dexcom G7 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
== END 2024-01-18 09:35 | disposition home or self-care (01) ==
PROVIDERS: Emergency Provider Nurse Practitioner Family; PCP Internal Medicine
DX: H66.93 Otitis media, unspecified, bilateral (principal); F17.290 Nicotine dependence, other tobacco product, uncomplicated; F12.90 Cannabis use, unspecified, uncomplicated; E78.00 Pure hypercholesterolemia, unspecified; I10 Essential (primary) hypertension; K21.9 Gastro-esophageal reflux disease without esophagitis; E11.9 Type 2 diabetes mellitus without complications; Z79.4 Long term (current) use of insulin
CPT/HCPCS: 99213; G0463